=== PATIENT | male | born 1940 | race Caucasian/White ===

== ENCOUNTER 2017-04-23 22:08 | Emergency (ER) | payer OTHER ==
[~2017-04-23] VITALS: Ht 180.3 cm; Wt 80.3 kg
[2017-04-23] MEDS ORDERED: PRAVACHOL40 MG PO (23:15)
[2017-04-23] MEDS ORDERED: ASPIR 8181 MG PO (23:18)
[2017-04-23] MEDS ORDERED: PROTONIX 20 MG20 M1 PO (23:18)
[2017-04-23] MEDS ORDERED: ALLOPURINOL 10100 M1 PO (23:18)
[2017-04-23] MEDS ORDERED: BLOOD THINNER PO (23:19)
[2017-04-23] MEDS ORDERED: [UNRECOGNIZED DRUG - REMARK] (23:20)
[2017-04-23] MEDS ORDERED: [UNRECOGNIZED DRUG - REMARK] (23:21)
[2017-04-23] MEDS ORDERED: VITAMIN D3400 UNI2 (23:22)
[2017-04-23] MEDS ORDERED: TESSALON PERLE100 MG PO (23:47)
[2017-04-23] MEDS ORDERED: TAMIFLU75 MG PO (23:47)
== END 2017-04-24 00:21 | disposition home or self-care (01) ==
LOC: ER 22:08
DX: J11.1 Influenza due to unidentified influenza virus with other respiratory manifestations (principal); F17.210 Nicotine dependence, cigarettes, uncomplicated

== ENCOUNTER 2021-03-25 18:39 | Emergency (ER) | payer OTHER, BC ==
[~2021-03-25] VITALS: Ht 180.3 cm; Wt 76.2 kg
[~2021-03-25 18:39] MED LIST: ALLOPURINOL 10100 M1 PO; ASPIR 8181 MG PO; BLOOD THINNER PO; PRAVACHOL40 MG PO; PROTONIX 20 MG20 M1 PO; TAMIFLU75 MG PO; TESSALON PERLE100 MG PO; VITAMIN D3400 UNI2; [UNRECOGNIZED DRUG - REMARK]; [UNRECOGNIZED DRUG - REMARK]
[2021-03-25 21:30] VITALS: BP 171/95
== END 2021-03-25 21:30 | disposition home or self-care (01) ==
LOC: ER 18:39
DX: T60.2X1A Toxic effect of other insecticides, accidental (unintentional), initial encounter (principal); E78.00 Pure hypercholesterolemia, unspecified; I10 Essential (primary) hypertension; F17.210 Nicotine dependence, cigarettes, uncomplicated; Z79.82 Long term (current) use of aspirin; Z79.899 Other long term (current) drug therapy; Y92.89 Other specified places as the place of occurrence of the external cause